=== PATIENT | male | born 1945 | race Hispanic/Latino ===

== ENCOUNTER → 2022-10-08 | Outpatient (CLI) | payer OTHER | END | disposition home or self-care (01) | LOC: RAH 13:58 | PROVIDERS: ATTEND Family Medicine | DX: E04.1 Nontoxic single thyroid nodule (principal); Z98.890 Other specified postprocedural states | CPT/HCPCS: 70490 ==

== ENCOUNTER → 2023-08-20 | Outpatient (CLI) | payer OTHER | END | disposition home or self-care (01) | LOC: OIH 14:49 | PROVIDERS: ATTEND Internal Medicine Cardiovascular Disease | DX: Z13.6 Encounter for screening for cardiovascular disorders (principal); R01.1 Cardiac murmur, unspecified | CPT/HCPCS: 75571 ==

== ENCOUNTER → 2023-09-13 | Outpatient (CLI) | payer MEDICARE | END | disposition home or self-care (01) | LOC: SHCH 11:04 | PROVIDERS: ATTEND Internal Medicine Cardiovascular Disease | DX: I34.0 Nonrheumatic mitral (valve) insufficiency (principal); R01.1 Cardiac murmur, unspecified | CPT/HCPCS: 93306 ==

== ENCOUNTER → 2023-10-17 | Outpatient (CLI) | payer MEDICARE ==
[2023-10-17] MEDS: REGADENOSON 0.4 MG/5 ML PF SYG IVP ONE (11:43)
== END | disposition home or self-care (01) ==
LOC: SHCH 07:44
PROVIDERS: ATTEND Internal Medicine Cardiovascular Disease
DX: I25.10 Atherosclerotic heart disease of native coronary artery without angina pectoris (principal); R06.00 Dyspnea, unspecified
CPT/HCPCS: 78452; 96374; 93017; J2785; A9500 ×2

== ENCOUNTER → 2023-12-03 | Outpatient (CLI) | payer MEDICARE | END | disposition home or self-care (01) | LOC: RAH 12:44 | PROVIDERS: ATTEND Family Medicine | DX: D35.2 Benign neoplasm of pituitary gland (principal); R20.2 Paresthesia of skin | CPT/HCPCS: 70551 ==

== ENCOUNTER → 2025-06-13 | Outpatient (CLI) | payer MEDICARE ==
[2025-06-13 09:27] LABS: CREATININE 0.9 mg/dL (0.5-1.3); GLOMERULAR FILTR. RATE CALC 86.0 mL/min (>90)
== END | disposition home or self-care (01) ==
LOC: LAB 08:30
PROVIDERS: ATTEND Neurological Surgery
DX: D35.2 Benign neoplasm of pituitary gland (principal); D35.3 Benign neoplasm of craniopharyngeal duct
CPT/HCPCS: 36415; 82565

== ENCOUNTER → 2025-06-20 | Outpatient (CLI) | payer MEDICARE ==
[~2025-06-20] MED LIST: GADOTERATE MEGLUMINE 10 MMOL/20 ML VIAL IV ONE
--- NOTE | 2025-06-20 23:13 | HMCIMG ---
EXAM: MR Pituitary Gland/Sella Turcica with and without Intravenous Contrast. CLINICAL HISTORY: D35.2 Benign neoplasm of pituitary gland. TECHNIQUE: Magnetic resonance images of the sella turcica and pituitary gland with and without intravenous contrast in multiple planes. Series acquired: 3 - SAG T1 SE - TR: 550.0 - TE: 12.0 - ET: 1.0 - Thk: 5.0 5 - AX T2 FSE - TR: 5812.0 - TE: 98.1 - ET: 24.0 - Thk: 5.0 6 - AX T2 FLAIR - TR: 60731.0 - TE: 93.2 - ET: 16.0 - Thk: 5.0 7 - AX DWI - TR: 4862.0 - TE: 77.5 - ET: 1.0 - Thk: 5.0 8 - AX T2* GRE (TRAUMA OR BLEED) - TR: 516.7 - TE: 10.0 - ET: 1.0 - Thk: 5.0 9 - AX T1 FSE - TR: 479.0 - TE: 9.3 - ET: 3.0 - Thk: 5.0 10 - SAG T1 FSE 3MM - TR: 587.0 - TE: 10.3 - ET: 7.0 - Thk: 3.0 12 - COR T2 PROPELLER 3MM - TR: 3128.8 - TE: 138.9 - ET: 32.0 - Thk: 3.0 13 - COR T1 FSE 3MM - TR: 585.0 - TE: 10.2 - ET: 7.0 - Thk: 3.0 14 - COR DYNAMIC SELLA - TR: 450.0 - TE: 14.1 - ET: 7.0 - Thk: 3.0 15 - G+ COR T1 FSE 3MM - TR: 646.0 - TE: 10.2 - ET: 8.0 - Thk: 3.0 16 - G+ SAG T1 FSE 3MM - TR: 649.0 - TE: 10.3 - ET: 8.0 - Thk: 3.0 17 - G+ AX T1 FSE 3MM - TR: 698.0 - TE: 10.3 - ET: 6.0 - Thk: 3.0 18 - G + AX T1 FSE - TR: 673.0 - TE: 9.3 - ET: 4.0 - Thk: 5.0 19 - G+ COR T1 SE - TR: 483.3 - TE: 21.0 - ET: 1.0 - Thk: 5.0 700 - APPARENT DIFFUSION COEFFICIENT (MM2/S) - TR: 4862.0 - TE: 77.5 - ET: 1.0 - Thk: 5.0 701 - EXPONENTIAL APPARENT DIFFUSION COEFFICIENT - TR: 4862.0 - TE: 77.5 - ET: 1.0 - Thk: 5.0 CONTRAST: Intravenous contrast was administered. COMPARISON: None provided. FINDINGS: SELLA TURCICA: The bony sella is intact. No space-occupying lesion is identified within the sella. 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 The infundibulum is midline. No suprasellar mass. OPTIC CHIASM: Unremarkable. CAVERNOUS SINUSES: Cavernous sinuses are symmetric and patent without mass or thrombosis. SUPRASELLAR REGION: No suprasellar mass or abnormal enhancement. BRAIN: Age-appropriate diffuse cerebral volume loss. Scattered T2/FLAIR hyperintensities in the bilateral periventricular and deep white matter with punctate foci, compatible with Fazekas grade I chronic small vessel ischemic changes. 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 SINUSES AND MASTOIDS: Abnormal soft tissue thickening and enhancement involving the floor of the sella and the anterior and posterior bond and roof of the sphenoid sinus, corresponding to T1 hypointense, T2 hyperintense, heterogeneously enhancing tissue, likely inflammatory. Remaining visualized paranasal sinuses and mastoid air cells are otherwise unremarkable. BONES: No focal osseous destructive lesion. 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 Correlate with pituitary hormonal profile. * Heterogeneously enhancing T1 hypointense, T2 hyperintense tissue involving the bond and roof of the sphenoid sinus abutting the sella, most suggestive of sphenoid sinus inflammatory disease; recommend ENT/clinical correlation and interval imaging if symptoms persist. * Fazekas grade I chronic small vessel ischemic changes in the bilateral periventricular and deep white matter with age-appropriate diffuse cerebral volume loss. 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 /[place]
== END | disposition home or self-care (01) ==
LOC: RAH 07:39
PROVIDERS: ATTEND Neurological Surgery
DX: I67.82 Cerebral ischemia (principal); D35.2 Benign neoplasm of pituitary gland; D35.3 Benign neoplasm of craniopharyngeal duct
CPT/HCPCS: 70553; A9575